=== PATIENT | male | born 2000 | race Caucasian/White ===

== ENCOUNTER 2025-06-09 22:53 | Emergency (ER) | payer MEDICAID, SELFPAY ==
[2025-06-09 22:55] VITALS: BP 134/97; PULSE 118; RESP 24; TEMP 37.2; O2SAT 98; BMI 25.9
--- NOTE | 2025-06-09 23:26 | CT_ITS ---
PROCEDURE: CT/Abdomen/Pelvis W IV Cont ONLY
[2025-06-09] MEDS: 0.9% Normal Saline (1000mL) 1,000 ML 999 ML IV (23:35)
[2025-06-09 23:39] LABS: Mucous, Urine 0 SEEN /hpf (<or=2+); Red Blood Cells-Urine 0 SEEN /hpf (0-5); Squamous Epithelial Cells - UA 0 SEEN /hpf (0-5)
[2025-06-09 23:40] LABS: Color, Urine Yellow (Yellow); Glucose, Dipstick Normal (Normal); Ketone-Dipstick Negative (Negative); Leukocyte Esterase-Dipstick Negative /ul (Negative); Nitrite-Dipstick Negative (Negative); Occult Blood-Urine Negative /ul (Negative); Protein-Dipstick 30 mg/dl (Negative); Specific Gravity, Urine 1.015 (1.002-1.030); Urine Bilirubin Dipstick Negative (Negative)
[2025-06-09 23:56] LABS: Hematocrit 43.3 % (40-54); Hemoglobin 15.1 g/dL (13.0-16.5); Immature Granulocytes Count 0.100 X10^3/uL (0.0-0.0); Mean Corp Hgb Conc 34.9 g/dL (32-36); Mean Corpuscular Volume 83.9 fL (80-94); Mean Platelet Vol. 9.7 fl (6.2-12.0); NRBC Flagged by Analyzer 0 % (0-5); Platelet Count 280 K/mm3 (150-450); RBC Distribution Width CV 13.2 % (11.6-14.6); RBC Distribution Width SD 40.6 fl (35.1-43.9); Red Blood Count 5.16 M/mm3 (4.6-6.2); White Blood Count 8.3 K/mm3 (4.4-11.0)
[2025-06-10 00:10] LABS: AST(SGOT) 23 U/L (<=37); Alanine Aminotransfer ALT/SGPT 22 U/L (<=46); Albumin, Serum 4.6 g/dL (3.5-5.0); Alkaline Phosphatase 100 U/L (40-129); Anion Gap 12 (5-15); BUN 5 mg/dL (4-19); BUN/Creat Ratio 5.7 RATIO (10-20); Calcium,Total 9.6 mg/dL (7.6-11.0); Carbon Dioxide 24.3 mmol/L (21.0-32.0); Chloride 105 mmol/L (98-108); Estimated Creatinine Clearance 117.72 ml/min (50-250); Globulin 2.6 g/dL (2.2-4.2); Glucose 107 mg/dL (70-99); Lipase 23 U/L (13-75); Potassium 3.2 mmol/L (3.3-5.1)
[2025-06-10 01:03] VITALS: PULSE 95; RESP 16; O2SAT 99
--- NOTE | 2025-06-10 02:18 | EX.ED.DYSGE1 ---
HPI History of Present Illness Chief Complaint: Abd Pain Narrative Narrative: Patient was seen and examined after presenting to ED for right lower quadrant abdominal pain thinks that his appendix but also informed that he is having right testicular pain as well and I do not know, are your balls connected to your appendix? Said he was nauseous. PFSH PFSH Medical History no medical history Home Medications ?Medication ?Instructions ?Recorded ?Last Taken ?Type NK 06/09/25 Unknown History Allergy/AdvReac Type Severity Reaction Status Date / Time No Known Allergies Allergy Verified 06/09/25 22:55 Family History no significant family his Surgical History no surgical history Social History Smoking Status: Current some day smoker tobacco type: cigarettes ROS ROS ED ROS Narrative Pertinent Positives: Right lower quadrant abdominal pain as well as right testicular pain nausea diarrhea Pertinent Negatives: Fevers chills vomiting hematuria black or bloody stool The remainder of review of systems negative unless otherwise stated in the HPI above. Systems reviewed including constitutional, psychiatric, cardiovascular, respiratory, integument, HENT, gastrointestinal. EXAM Physical Exam Narrative Exam Narrative: Afebrile hemodynamically stable does not appear toxic or in distress he is normocephalic and atraumatic cranial nerves II through XII grossly intact. Abdomen is soft nondistended does have tenderness overlying his right lower quadrant no overlying hernias or erythema crepitus or other skin discoloration or vesicular lesions exam was performed has tenderness involving his right testicle has normal lie intact cremasteric reflexes no overlying cellulitic changes or evidence of Annika's gangrene penis otherwise appears unremarkable Const Vital Signs: 06/09/25 22:55 06/10/25 01:03 Temperature 98.9 F Temperature Source Temporal Pulse Rate 118 H 95 Respiratory Rate 24 H 16 Blood Pressure 134/97 H Blood Pressure Mean 109 Pulse Ox 98 99 MDM MDM MDM Narrative Medical decision making narrative: Nursing notes, triage notes, available previous documentation, and vital signs were reviewed. Any discrepancies noted were addressed. Differential Diagnoses: Need to consider testicular torsion but lower suspicion for that could be epididymitis denies penile discharge or any concern for an STI no evidence of any hernia noted to be incarcerated or strangulated could be appendicitis or diverticular disease he already had his gallbladder removed Interventions: Morphine Zofran Fluids Given: 1 L normal saline Labs Reviewed: No leukocytosis anemia significant electrolyte abnormal renal sufficiency or transaminitis lipase is 23 unlikely pancreatitis urine without evidence of infection or blood shows 1 urobilinogen as well as 30 protein Imaging Reviewed: Personally reviewed and interpreted by me: CT head pelvis see any obvious acute pathology does seem to have a bit of a stool burden in his ascending colon with nonpathologic more concerning for gas pending official report but official testicular ultrasound was unremarkable CT is fairly unremarkable just shows some mild gastroparesis and gastritis and evidence of diarrhea Previous Documentation Reviewed: None available or applicable at this time. ED Course: Patient presenting with symptoms as stated above ruled out testicular torsion as he had good blood flow pending CT results labs for the most part were fairly unremarkable barring any significant findings on the CT of the abdomen pelvis patient will be discharged home. This note was made utilizing voice recognition software. All attempts were made to correct spelling or other errors prior to note completion. However, due to the fast-paced nature of emergency medicine, some errors may still be present. Lab Data Labs: Laboratory Results - last 24 hr 06/09/25 06/09/25 23:04 23:35 WBC 8.3 RBC 5.16 Hgb 15.1 Hct 43.3 MCV 83.9 MCH 29.3 MCHC 34.9 RDW Std Deviation 40.6 RDW Coeff of [place] 13.2 Plt Count 280 MPV 9.7 Immature Gran % (Auto) 1.200 H Neut % (Auto) 66.6 Lymph % (Auto) 22.6 [place] % (Auto) 8.4 Eos % (Auto) 0.8 Baso % (Auto) 0.4 Absolute Neuts (auto) 5.6 Absolute Lymphs (auto) 1.88 Nucleated RBC % 0 Sodium 141 Potassium 3.2 L Chloride 105 Carbon Dioxide 24.3 Anion Gap 12 BUN 5 Creatinine 0.92 Estim Creat Clear Calc 117.72 Est GFR (MDRD) Non-Af 115 BUN/Creatinine Ratio 5.7 L Glucose 107 H Calcium 9.6 Total Bilirubin 0.75 AST 23 ALT 22 Alkaline Phosphatase 100 Total Protein 7.1 Albumin 4.6 Globulin 2.6 Albumin/Globulin Ratio 1.8 Lipase 23 Urine Color Yellow Urine Clarity Clear Urine pH 6.0 Ur Specific [place] 1.015 Urine Protein 30 H Urine Glucose (UA) Normal Urine Ketones Negative Urine Occult Blood Negative Urine Nitrite Negative Urine Bilirubin Negative Urine Urobilinogen 1 H Ur Leukocyte Esterase Negative Urine RBC 0 SEEN Urine WBC 0 SEEN Ur Squamous Epith Cells 0 SEEN Urine Bacteria RARE Urine Mucus 0 SEEN Radiography Diagnostic Testing: Clinical Impression(s) from Imaging Studies Abdomen/Pelvis CT 06/09/25 23:26 IMPRESSION: Prior cholecystectomy. Prior fundoplication. Mild gastroparesis/gastritis. Fluid-filled rectum, possibly secondary to diarrhea. Bilateral subcutaneous nodular panniculitis of the gluteal regions, benign chronic finding. Reading Location: [place] [id number] Testicular Ultrasound 06/10/25 23:25 IMPRESSION: Normal bilateral testicular flow without evidence of testicular torsion. Bilateral heterogeneity of the epididymal tails, chronic finding. No evidence of hydrocele on either side. Reading Location: [place] [id number] Discharge Plan Triage Chief Complaint: Abd Pain ED Provider: Suellen Valero Dx/Rx/DC Orders Clinical Impression: Abdominal pain, Pain in right testicle, Diarrhea Instructions: Abdominal Pain Prescriptions: No Action NK Primary Care Provider: Care Physician,No Primary Referrals: Ximena Foote MD [Med Staff - [facility], Internal Medicine] Care Physician,No Primary [Primary Care Provider, Medical] Activity Restrictions/Additional Instructions: Be sure to follow-up with your medical care team please return if you are having worsening symptoms Print Language: Micronesian Disposition Disposition: Home, Self Care
[2025-06-10 02:59] VITALS: BP 107/62; PULSE 62; RESP 16; TEMP 36.5; O2SAT 98
--- NOTE | 2025-06-10 23:25 | US_ITS ---
PROCEDURE: US/Testicular with Arterial Flow
== END 2025-06-10 03:02 | disposition home or self-care (01) ==
PROVIDERS: Emergency Provider Specialist/Technologist Athletic Trainer; Visit Provider Specialist/Technologist Athletic Trainer
DX: R10.9 Unspecified abdominal pain (principal); R19.7 Diarrhea, unspecified; R11.0 Nausea; N50.811 Right testicular pain; F17.210 Nicotine dependence, cigarettes, uncomplicated
CPT/HCPCS: 74177; 76870; 80053; 81001; 83690; 85025; 93976; 96361; 96374; 96375; 99283; Q9967; A4216; J2405

== ENCOUNTER 2025-06-25 15:44 | Emergency (ER) | payer OTHER, MEDICAID, SELFPAY ==
[2025-06-25 15:45] VITALS: BP 140/78; PULSE 115; RESP 16; TEMP 36.3; O2SAT 100; BMI 25.9
--- NOTE | 2025-06-25 15:50 | ED.RN ---
Patient informed he must go to [facility] for drug testing.
--- NOTE | 2025-06-25 16:09 | EDS_ITS ---
HPI History of Present Illness Chief Complaint: Upper Extremity Injury Informant: patient Narrative Narrative: 24-year-old male presenting to the emergency room with right hand injury. Patient states that he was at work today was pushing on a door when the door c deena back and hyperextended his right thumb. He notes pain along the dorsum of the right thumb. He denies any bleeding. He notes he is right-handed. PFSH PFSH Medical History no medical history Home Medications ?Medication ?Instructions ?Recorded ?Last Taken ?Type NK 06/09/25 Unknown History Allergy/AdvReac Type Severity Reaction Status Date / Time No Known Allergies Allergy Verified 06/25/25 15:45 Social History Smoking Status: Current some day smoker tobacco type: cigarettes ROS ROS ED Constitutional Constitutional ED: Denies chills, fever(s) or weight loss Eyes Eyes: Denies change in vision or diplopia ENT ENT ED: Denies ear pain, rhinorrhea or sore throat Cardiovascular Cardiovascular: Denies chest pain, orthopnea, palpitations or racing heartbeat Respiratory/Chest Respiratory/Chest: Denies cough, dyspnea or orthopnea Gastrointestinal Gastrointestinal: Denies abdominal pain, diarrhea, nausea or vomiting Genitourinary Genitourinary ED: Denies dysuria, hematuria or urinary frequency Musculoskeletal Musculoskeletal: Reports other Details: See history of present illness ; Denies arthralgias or myalgias Integumentary Denies abscess or rash Neurologic Neurologic: Denies headache(s) or weakness Psychiatric Psychiatric: Denies anxiety, depression, suicidal ideation or suicidal thoughts Endocrine Endocrinology: Denies polydipsia, polyphagia or polyuria Allergic/Immunologic Allergic/Immunologic ED: Denies mouth swelling, tongue swelling or urticaria EXAM Physical Exam Const Vital Signs: 06/25/25 15:45 Temperature 97.3 F L Temperature Source Temporal Pulse Rate 115 H Respiratory Rate 16 Blood Pressure 140/78 H Blood Pressure Mean 98 Pulse Ox 100 Oxygen Delivery Method Room Air Positive well nourished and well developed General Appearance ED: well developed and NAD HEENT Reports normocephalic, head/scalp atraumatic and moist mucous membranes Eyes PERRL and EOMs intact bilaterally Neck no lymphadenopathy, supple and no JVD Resp normal respiratory effort and clear to auscultation bilaterally Cardio regular rate, regular rhythm and no murmurs GI normal to inspection, nondistended, normoactive bowel sounds and non-tender Palpation: soft Back/Spine no CVA tenderness and normal ROM Extremity Extremity Narrative: Right hand is tender along the dorsum of the first metacarpal to the MCP joint. I do not appreciate significant swelling or bruising. He does not report any tenderness along the thenar eminence. Opposition is intact. He has pain with extension. I do not see any nailbed injury. Neurovascular intact. General Extremety ED: Negative for edema General Extremity: Negative for edema Neuro oriented x3 and CN's II-XII intact bilaterally Sensorium / Orientation: alert Motor Exam: strength 5/5 throughout Psych mental status grossly normal Mood & Affect: Negative for depressed or tearful Skin no rashes or lesions noted and no wounds MDM MDM MDM Narrative Medical decision making narrative: Differential diagnosis includes fracture dislocation sprain strain gamekeeper's thumb neurovascular injury My independent or potation of the plain films of the right hand is no acute fracture. Patient was placed in a thumb spica splint. His pain is on the dorsum. He has normal opposition. I have less suspicion for gamekeeper's thumb though the mechanism would be suggestive of it. Would recommend ice anti- inflammatories. He received ibuprofen here. He will [facility] with [facility]. Work restrictions given. History & Record Review Discussion w/independent historian: Patient Discharge Plan Triage Chief Complaint: Upper Extremity Injury ED Provider: Anatoly Souza Dx/Rx/DC Orders Clinical Impression: Sprain of hand, thumb, right Instructions: Understanding Skier's Thumb, ED Hand Sprain Prescriptions: No Action NK Primary Care Provider: Care Physician,No Primary Referrals: [facility] [Provider Group] - 1 Week Care Physician,No Primary [Primary Care Provider, Medical] Print Language: [place] Irish Disposition Disposition: Home, Self Care Discharge Date/Time: 06/25/25 17:41
--- NOTE | 2025-06-25 16:17 | RAD_ITS ---
PROCEDURE: HAND MIN 3 VIEWS 06/25/2025 REASON FOR EXAM: FIRST METACARPAL PAIN/INJURY TECHNIQUE: Procedure Code: JAZ Modality: DX Procedure: HAND MIN 3 VIEWS Laterality: Right COMPARISON: None. FINDINGS: No acute fracture or dislocation. Alignment is anatomic. Preserved joint spaces. No aggressive osseous lesion. No marked soft tissue swelling or radiopaque foreign body. RAD/Hand Min 3 Views IMPRESSION: No acute fracture or dislocation. Reading Location: [id number]
[2025-06-25 17:40] VITALS: BP 124/71; PULSE 71; RESP 14; TEMP 36.6; O2SAT 98
== END 2025-06-25 17:41 | disposition home or self-care (01) ==
PROVIDERS: Emergency Provider Emergency Medicine; Visit Provider Emergency Medicine
DX: S63.91XA Sprain of unspecified part of right wrist and hand, initial encounter (principal); F17.210 Nicotine dependence, cigarettes, uncomplicated; S63.601A Unspecified sprain of right thumb, initial encounter; W22.8XXA Striking against or struck by other objects, initial encounter
CPT/HCPCS: 73130; 99283